=== PATIENT | female | born 1995 | race Caucasian/White ===

== ENCOUNTER 2019-09-10 21:53 | Emergency (ER) | payer OTHER ==
[~2019-09-10] VITALS: Ht 165.1 cm; Wt 72.6 kg
[2019-09-10 22:00] VITALS: BP_SYST 142
[2019-09-10 22:24] VITALS: BP_SYST 142
== END 2019-09-10 22:24 | disposition home or self-care (01) ==
LOC: SED 21:53
DX: J06.9 Acute upper respiratory infection, unspecified (principal)
CPT/HCPCS: 99282